=== PATIENT | male | born 1980 | race Caucasian/White ===

== ENCOUNTER → 2018-04-17 09:59 | Outpatient (CLI) | payer MEDICAID, SELFPAY ==
--- NOTE | 2018-04-17 10:00 | XR_ITS ---
XR foot wt bearing RT 3V HISTORY: Pain ITS.REASON: ankle injury ORDERING PHYSICIAN: Debby Frazier DPM PATIENT AGE: 37 years COMPARISON: None FINDINGS: No acute fracture or dislocation is evident. There is some mild focal cortical thickening involving the medial aspect and mid shaft of the fifth metatarsal which could be related to healing fracture. This is only well seen on the oblique view. No other significant anomalies are evident. IMPRESSION: Possible healing fracture mid shaft fifth metatarsal
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
--- NOTE | 2018-04-17 10:00 | XR_ITS ---
XR foot wt bearing LT 3V HISTORY: Pain ITS.REASON: ankle injury ORDERING PHYSICIAN: Debby Frazier DPM PATIENT AGE: 37 years COMPARISON: None FINDINGS: No fracture or dislocation. No lytic or blastic change. There is normal mineralization.. The joint spaces are well-preserved. No significant degenerative/arthritic changes. No erosive changes evident. IMPRESSION: Negative, no acute finding
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
== END ==
PROVIDERS: Visit Provider Podiatrist
DX: S93.421D Sprain of deltoid ligament of right ankle, subsequent encounter (principal); S93.491D Sprain of other ligament of right ankle, subsequent encounter; M76.71 Peroneal tendinitis, right leg
CPT/HCPCS: 73610; 73630

== ENCOUNTER 2020-04-02 15:54 | Emergency (ER) | payer OTHER, SELFPAY ==
[2020-04-02 15:55] VITALS: BP 132/79; PULSE 82; RESP 18; TEMP 36.6; O2SAT 98; BMI 32.5
--- NOTE | 2020-04-02 16:05 | HMH.EDGENADL ---
ED Disposition Clinical Impression: Blister beetle poisoning Qualifiers: Encounter type: initial encounter Injury intent: accidental or unintentional Qualified Code(s): T49.8X1A - Poisoning by other topical agents, accidental (unintentional), initial encounter Disposition: Home, Self-Care Condition on Discharge: Good Additional Instructions: Clean the areas with soap and water daily. Apply Kenalog cream 3 times daily for 1 week. Benadryl as needed for itching. Tylenol or ibuprofen as needed for pain. Return to the emergency room if spreading redness or red streaks, pain, or fever. Prescriptions: Triamcinolone Acetonide [Kenalog 0.1% cream 30gm tube] 1 applic TOPICAL TID #30 cream..g. Transmission Status: Pending to [id number] Referrals: Erasto Saravia [Primary Care Provider] - - Critical Care Critical Care Time: No Attestation: On 04/02/20, the high probability of a clinically significant, sudden or life threatening deterioration of the following system(s) required my full and direct attention, intervention and personal management. The time I documented below is in addition to time spent performing reported procedures but includes the following listed in this critical care notation. Medical Decision Making - Yovani Inquiry Pt receiving controlled substance: No Vital Signs: 04/02/20 15:55 Temperature 98 F Temperature Source Oral Pulse Rate [Right] 82 Respiratory Rate 18 Blood Pressure [Right Arm] 132/79 Blood Pressure Mean [Right Arm] 96 02 Sat by Pulse Oximetry 98 Medical Decision Narrative: Areas are consistent with blister beetle toxicity dermatitis. The large vesicle was ruptured with a #11 scalpel blade cleansed and dry dressing applied. Wrist lesion required no treatment. General Adult HPI - General Stated complaint: Possible spider bite r leg Time Seen by Provider: 04/02/20 16:06 - History of Present Illness HPI narrative: 3-day history of an enlarging blister on his right lateral lower leg and a small one on his right wrist. Minimal pain. 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 Also wonders whether it could be a brown recluse spider bite. No fever. - Related Data Previous Rx's Medication Instructions Recorded Triamcinolone Acetonide [Kenalog 1 applic TOPICAL TID #30 cream..g. 04/02/20 0.1% cream 30gm tube] Allergies Allergy/AdvReac Type Severity Reaction Status Date / Time No Known Allergies Allergy Verified 03/27/18 14:30 [facility] History - Hepatitis A Screen Attestation statement:: This patient has been screened for Hepatitis A risk factors. I have reviewed the patient's past medical history: Yes Medical History: Denies:: Diabetes Mellitus Type 1, Diabetes Mellitus Type 2 Other Surgeries: Yes: No Previous Surgery - Social History Smoking Status: Current every day smoker Tobacco Type: smokeless tobacco Alcohol Intake: never Alcohol Intake Frequency:: other Substance Use Type: marijuana Occupational Status: employed Family Hx:: Cancer, Diabetes ROS Obtained: Yes Systems reviewed as appropriate & no additional complaints - Constitutional Constitutional: Denies fever(s) - Integumentary/Breasts Skin/Breast: Reports as per HPI Physical Exam - General General appearance: alert, in no apparent distress - Respiratory Respiratory exam: Absent: respiratory distress - Cardiovascular Cardiovascular exam: Present: regular rate - Extremities Exam Extremities exam: Present: normal capillary refill - Neurological Exam Neurological exam: Present: alert, oriented X3 - Psychiatric Psychiatric exam: Present: normal affect, normal mood - Skin Skin exam: Present: warm, dry - Expanded Skin Exam Comment: 2.5 cm x 2 cm vesicle with clear fluid right lateral lower leg with minimal rim of surrounding erythema. No purulence. No lymphangitis. No signs of abscess. No necrosis or deep wound. Small dried ruptured vesicle on right w
[2020-04-02 16:47] VITALS: BP 145/87; PULSE 87; RESP 20; TEMP 36.8; O2SAT 98
== END 2020-04-02 16:48 | disposition home or self-care (01) ==
PROVIDERS: Emergency Provider Emergency Medicine; PCP Family Medicine
DX: T49.8X1A Poisoning by other topical agents, accidental (unintentional), initial encounter (principal); F17.290 Nicotine dependence, other tobacco product, uncomplicated
CPT/HCPCS: 99281

== ENCOUNTER 2020-10-10 15:16 | Emergency (ER) | payer SELFPAY ==
[2020-10-10 15:18] VITALS: BP 136/70; PULSE 91; RESP 18; TEMP 36.6; O2SAT 97; BMI 38.0
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
[2020-10-10 18:08] VITALS: BP 136/70; PULSE 91; RESP 18; TEMP 36.6; O2SAT 97
== END 2020-10-10 18:10 | disposition home or self-care (01) ==
PROVIDERS: Emergency Provider Emergency Medicine; PCP Family Medicine
DX: S80.02XA Contusion of left knee, initial encounter (principal); S70.02XA Contusion of left hip, initial encounter; S20.212A Contusion of left front wall of thorax, initial encounter; F17.290 Nicotine dependence, other tobacco product, uncomplicated; V89.2XXA Person injured in unspecified motor-vehicle accident, traffic, initial encounter; Y92.488 Other paved roadways as the place of occurrence of the external cause
CPT/HCPCS: 71101; 72100; 73502; 73562; 99282

== ENCOUNTER 2021-02-11 13:54 | Emergency (ER) | payer SELFPAY ==
[2021-02-11 13:55] VITALS: BP 138/89; PULSE 91; RESP 16; TEMP 36.8; O2SAT 98; BMI 32.4
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
[2021-02-11 15:10] VITALS: BP 143/71; PULSE 67; RESP 19; TEMP 36.7; O2SAT 97
== END 2021-02-11 15:10 | disposition home or self-care (01) ==
PROVIDERS: Emergency Provider Nurse Practitioner; PCP Family Medicine
DX: M25.511 Pain in right shoulder (principal); M62.838 Other muscle spasm
CPT/HCPCS: 73030; 99202; G0463